=== PATIENT | female | born 1960 | race African-American/Black ===

== ENCOUNTER 2021-10-06 18:32 | Emergency (ER) | payer MEDICAID ==
[~2021-10-06] VITALS: Ht 157.5 cm; Wt 85.0 kg
[2021-10-06] MEDS ORDERED: METHYLPREDNISOLONE SOD SUCC 125 MG/2 ML VIAL IV ONE (19:30)
[2021-10-06] MEDS ORDERED: DIPHENHYDRAMINE 50MG/ML VIAL IV ONE (19:30)
[2021-10-06 19:39] LABS: BASOPHILS % 0.7 % (0.0-2.0); EOSINOPHILS % 1.9 % (0.0-5.0); HEMATOCRIT. 40.4 % (36.0-48.0); HEMOGLOBIN. 13.7 g/dL (12.0-16.0); LYMPHOCYTES % 36.5 % (20.0-50.0); MEAN PLATELET VOLUME 8.6 fl (7.4-10.4); MONOCYTES % 6.6 % (2.0-8.0); NEUTROPHILS % 54.3 % (40.0-76.0); PLATELET 202 x1000/uL (130-400); RED CELL DISTRIBUTION WIDTH 13.2 % (11.6-14.6)
[2021-10-06 19:50] LABS: CHLORIDE 107 mEq/L (98-107)
[2021-10-06] MEDS ORDERED: MORPHINE SULFATE 4 MG/ML CPJ (NOT FOR IM USE) IV ONE (20:00)
[2021-10-06 22:00] VITALS: BP 155/82
[2021-10-06] MEDS ORDERED: P50 MT (22:26)
[2021-10-06] MEDS ORDERED: DIPH25CA83 PO (22:27)
[2021-10-06] MEDS ORDERED: FAMO20TA8 MT (22:27)
== END 2021-10-06 22:50 | disposition home or self-care (01) ==
LOC: ER 18:32
DX: R22.0 Localized swelling, mass and lump, head (principal); K21.9 Gastro-esophageal reflux disease without esophagitis; Z88.8 Allergy status to other drugs, medicaments and biological substances; T39.315A Adverse effect of propionic acid derivatives, initial encounter; Y92.018 Other place in single-family (private) house as the place of occurrence of the external cause
CPT/HCPCS: 36415; 71045; 74176; 80053; 80307; 80329; 84484; 85025; 93005; 96374; 96375; 99285; J1200; J2270; J2930

== ENCOUNTER 2023-08-26 19:19 | Emergency (ER) | payer MEDICAID ==
[~2023-08-26] VITALS: Ht 162.6 cm; Wt 72.0 kg
[~2023-08-26 19:19] MED LIST: DIPH25CA83 PO; FAMO20TA8 MT; P50 MT
[2023-08-26 19:25] VITALS: BP 137/63; PULSE 87; RESP 16; TEMP 97.2; O2SAT 99
[2023-08-26 20:34] LABS: BASOPHILS % 0.4 % (0.0-2.0); EOSINOPHILS % 1.4 % (0.0-5.0); HEMATOCRIT. 40.7 % (36.0-48.0); HEMOGLOBIN. 13.8 g/dL (12.0-16.0); LYMPHOCYTES % 39.6 % (20.0-50.0); MEAN CORPUSCULAR HEMOGLOBIN 33.4 pg (28.0-32.0); MEAN CORPUSCULAR HGB CONC 33.9 g/dL (31.0-37.0); MEAN CORPUSCULAR VOLUME 98.5 fL (81.0-99.0); MONOCYTES % 4.7 % (2.0-8.0); NEUTROPHILS % 53.9 % (40.0-76.0); PLATELET 206 x1000/uL (130-400); RED BLOOD CELL COUNT 4.13 mill/uL (4.2-5.4); RED CELL DISTRIBUTION WIDTH 13.3 % (11.6-14.6); WHITE BLOOD COUNT 6.6 x1000/uL (4.5-11.0)
[2023-08-26 20:41] LABS: CARBON DIOXIDE 24 mEq/L (21-32); CHLORIDE 109 mEq/L (98-107); POTASSIUM 3.4 mEq/L (3.5-5.1); SODIUM 144 mEq/L (136-145)
[2023-08-26 20:42] LABS: CALCIUM 8.8 mg/dL (8.7-10.4)
[2023-08-26 20:47] LABS: CREATININE 0.6 mg/dL (0.6-1.0); GLUCOSE 106 mg/dL (70-105); UREA NITROGEN BLOOD 8 mg/dL (9-23)
[2023-08-26 20:49] LABS: AMMONIA < 17 uMol/L (<32)
[2023-08-26 20:56] LABS: ETHANOL BLOOD 283 mg/dL (<10)
== END 2023-08-26 20:53 | disposition left against medical advice (07) ==
LOC: ER 19:19
DX: F10.129 Alcohol abuse with intoxication, unspecified (principal); K21.9 Gastro-esophageal reflux disease without esophagitis; Y90.8 Blood alcohol level of 240 mg/100 ml or more
CPT/HCPCS: 36415; 80048; 80320; 82140; 85025; 99283; G0480